=== PATIENT | female | born 1935 | race Caucasian/White ===

== ENCOUNTER 2017-08-14 12:18 | Observation (INO) | payer MEDICARE, OTHER ==
[~2017-08-14] VITALS: Ht 157.5 cm; Wt 65.8 kg
--- NOTE | ~2017-08-14 | EC ---
PATIENT:CHRIS FLORES DATE OF SERVICE: 08/14/17 SEX: F MEDICAL RECORD: [id number] DATE OF : 31 LOCATION:[facility] DinaT0 AGE OF PATIENT: 82 ADMISSION DATE: 08/14/17 REFERRING PHYSICIAN: INTERPRETING PHYSICIAN: OLMAN HUIZAR MD ECHOCARDIOGRAM REPORT ECHO CHARGES 4 ECHO COMPLETE CLINICAL DIAGNOSIS: TIA ECHOCARDIOGRAPHIC MEASUREMENTS (adult normal given) AC root (d.<3.7cm) 3.2 cm LV Septum d (<1.2 cm> 1.1 cm Valve Excursion 2.1 cm LV Septum (systole) 1.9 cm Left Atria (s.<4.0cm> 2.5 cm LVPW d(<1.2cm) 1.2 cm RV (d.<2.3cm) 1.8 cm LVPW (sytole) 1.6 cm LV diastole(<5.6CM) 4.0 cm MV E-F(>70mm/sec) cm LV systole 2.7 cm LVOT Diameter 1.9 cm MV exc.(>10mm) cm Est.ejection fraction (50-75%) % Pericardial Effusion N DOPPLER: LVIT cm/sec A 112 cm/sec E 66.0 cm/sec LA cm/sec RVSP mmHg LVOT 86.0 cm/sec AOP1/2T m/s Asc. Ao 113 cm/sec RVOT 72.0 cm/sec RA cm/sec PA 76.0 cm/sec AV Gradient Peak 5.1 mmHg AV Mean 2.2 mmHg AV Area 2.7 cm MV Gradient Peak 4.9 mmHg MV Mean 1.7 mmHg MV Area cm COMMENTS: Freight Broker Agent: Carolina RIOSOE Client Support Representative: 1 Dr. Huizar TAPE# PACS DATE OF SERVICE: 08/15/2017 DATE OF SERVICE: 08/15/2017 ECHOCARDIOGRAM FINDINGS: 1. Left ventricular chamber size is within normal limits. Left ventricular systolic function is normal. Overall ejection fraction is estimated at 55% to 60%. ECHOCARDIOGRAM REPORT [id number] CHRIS FLORES 2. Left atrium, right atrium, and right ventricular chamber sizes are within normal limits. 3. Valvular structures have normal structure and motion. 4. Doppler interrogation reveals no significant valvular insufficiency or stenosis. 5. No evidence of pericardial effusion or left ventricular thrombus. 6. No cardiac source of neurologic emboli. TRANSINT:[id number] Voice Confirmation ID: [id number] DOCUMENT ID: [id number] OLMAN HUIZAR MD at 1148 CC: [id number] DICTATION DATE: 08/15/17 164 STRUCTURAL STEEL DETAILER: 08/15/17 1844 DIS IN 08/15/17 [facility] [address] [id number]
[2017-08-14 13:17] LABS: BASOPHILS 0.4 % (0-2); EOSINOPHILS 2.6 % (0-7); HEMATOCRIT 40.6 % (36.0-48.0); IMMATURE GRANULOCYTES 0.2 % (0-5); LYMPHOCYTES 23.1 % (15-50); MCH 31.3 pg (26.0-34.0); MCHC 34.5 g/dL (31.0-37.0); MCV 90.8 fL (80.0-100.0); MEAN PLATELET VOLUME 8.5 fL (7.4-10.4); MONOCYTES 6.2 % (2-11); NEUTROPHILS 67.5 % (40-80); PLATELET COUNT 193 10x3/uL (130-400); RBC 4.47 10x6/uL (4.00-5.40); WBC 8.1 10x3/uL (4.8-10.8)
[2017-08-14 13:32] LABS: ALBUMIN 3.8 g/dL (3.4-5.0); ALKALINE PHOSPHATASE 104 U/L (46-116); ALT (SGPT) 18 U/L (10-68); BILIRUBIN - TOTAL 0.67 mg/dL (0.2-1.3); CALC OSMOLALITY 275 mosm/kg (275-300); CALCIUM 8.6 mg/dL (8.5-10.1); CARBON DIOXIDE 27.1 mmol/L (21.0-32.0); CHLORIDE - SERUM 99 mmol/L (98-107); CREATININE - SERUM 1.3 mg/dL (0.6-1.3); GLUCOSE 101 mg/dL (74-106); POTASSIUM - SERUM 3.3 mmol/L (3.5-5.1); PROTEIN - SERUM 7.7 g/dL (6.4-8.2); SODIUM 137 mmol/L (136-145); UREA NITROGEN 18 mg/dL (7-18); eGFR NON AFRICAN AMERICAN 41 mL/min (90-120)
[2017-08-14 13:39] LABS: CREATINE KINASE 104 UL (21-215); LIPASE 315 U/L (73-393); PRO BNP 242 pg/mL (0-450)
[2017-08-14 13:40] LABS: TROPONIN-I < 0.017 ng/mL (0.000-0.060)
[2017-08-14 15:28] LABS: APPEARANCE CLEAR (CLEAR); BILIRUBIN NEGATIVE (NEGATIVE); COLOR YELLOW (YELLOW); GLUCOSE NEGATIVE (NEGATIVE); KETONE NEGATIVE (NEGATIVE); NITRITE NEGATIVE (NEGATIVE); PROTEIN NEGATIVE (NEGATIVE); UROBILINOGEN NORMAL (NORMAL)
[2017-08-14 17:45] LABS: CKMB 1.6 U/L (0.0-3.6); CREATINE KINASE 116 UL (21-215)
[2017-08-14 17:51] LABS: TROPONIN-I < 0.017 ng/mL (0.000-0.060)
[2017-08-14 23:14] LABS: CKMB 1.9 U/L (0.0-3.6); CREATINE KINASE 135 UL (21-215)
[2017-08-14 23:16] LABS: TROPONIN-I < 0.017 ng/mL (0.000-0.060)
[2017-08-15 05:04] LABS: BASOPHILS 0.8 % (0-2); HEMATOCRIT 36.9 % (36.0-48.0); HEMOGLOBIN 12.4 g/dL (12-16); IMMATURE GRANULOCYTES 0.2 % (0-5); LYMPHOCYTES 20.2 % (15-50); MCH 30.6 pg (26.0-34.0); MCHC 33.6 g/dL (31.0-37.0); MCV 91.1 fL (80.0-100.0); MEAN PLATELET VOLUME 8.1 fL (7.4-10.4); NEUTROPHILS 66.8 % (40-80); PLATELET COUNT 181 10x3/uL (130-400); RBC 4.05 10x6/uL (4.00-5.40); WBC 9.3 10x3/uL (4.8-10.8)
[2017-08-15 06:02] LABS: ALBUMIN 3.3 g/dL (3.4-5.0); ALKALINE PHOSPHATASE 97 U/L (46-116); ALT (SGPT) 15 U/L (10-68); BILIRUBIN - TOTAL 0.67 mg/dL (0.2-1.3); CALCIUM 8.1 mg/dL (8.5-10.1); CARBON DIOXIDE 27.4 mmol/L (21.0-32.0); CHLORIDE - SERUM 101 mmol/L (98-107); CKMB 1.2 U/L (0.0-3.6); CREATINE KINASE 106 UL (21-215); CREATININE - SERUM 1.2 mg/dL (0.6-1.3); GLUCOSE 89 mg/dL (74-106); POTASSIUM - SERUM 3.6 mmol/L (3.5-5.1); PROTEIN - SERUM 6.6 g/dL (6.4-8.2); SODIUM 139 mmol/L (136-145); eGFR NON AFRICAN AMERICAN 45 mL/min (90-120)
[2017-08-15 06:04] LABS: CALC OSMOLALITY 276 mosm/kg (275-300); TROPONIN-I < 0.017 ng/mL (0.000-0.060); UREA NITROGEN 13 mg/dL (7-18)
[2017-08-15] MEDS ORDERED: ASPIRIN325 MG PO (16:32)
== END 2017-08-15 18:54 | disposition home or self-care (01) ==
LOC: D.ER 12:18 → D.EDHOLD 13:54 → OBSVTIME 13:54 → D.ER 14:43 → D.EDHOLD 14:43
PROVIDERS: Emergency Medicine; Family Medicine
DX: I65.1 Occlusion and stenosis of basilar artery (principal); M81.0 Age-related osteoporosis without current pathological fracture; F32.9 Major depressive disorder, single episode, unspecified; M21.372 Foot drop, left foot

== ENCOUNTER → 2017-08-28 17:21 | Outpatient (CLI) | payer MEDICARE, OTHER ==
[~2017-08-28 17:21] MED LIST: ASPIRIN325 MG PO
[2017-08-28 18:24] LABS: ANION GAP 15.6 mmol/L (8-16); CALCIUM 9.4 mg/dL (8.5-10.1); CARBON DIOXIDE 26.9 mmol/L (21.0-32.0); CREATININE - SERUM 1.4 mg/dL (0.6-1.3); POTASSIUM - SERUM 3.5 mmol/L (3.5-5.1)
== END | disposition home or self-care (01) ==
LOC: D.LABREF 17:21
PROVIDERS: Emergency Medicine
DX: I50.9 Heart failure, unspecified (principal); I10 Essential (primary) hypertension; G45.9 Transient cerebral ischemic attack, unspecified

== ENCOUNTER 2018-01-01 16:13 | Inpatient (IN) | payer MEDICARE, OTHER ==
[~2018-01-01] VITALS: Ht 160 cm; Wt 72.6 kg
[2018-01-01 18:09] VITALS: BP 142/64
[2018-01-01 19:27] LABS: APPEARANCE CLEAR (CLEAR); BILIRUBIN NEGATIVE (NEGATIVE); COLOR YELLOW (YELLOW); GLUCOSE NEGATIVE (NEGATIVE); KETONE NEGATIVE (NEGATIVE); NITRITE NEGATIVE (NEGATIVE); PROTEIN NEGATIVE (NEGATIVE); UROBILINOGEN NORMAL (NORMAL)
[2018-01-01 19:41] LABS: BASOPHILS 0.7 % (0-2); EOSINOPHILS 5.1 % (0-7); HEMATOCRIT 35.8 % (36.0-48.0); HEMOGLOBIN 12.2 g/dL (12-16); IMMATURE GRANULOCYTES 0.1 % (0-5); LYMPHOCYTES 21.7 % (15-50); MCH 31.1 pg (26.0-34.0); MCHC 34.1 g/dL (31.0-37.0); MCV 91.3 fL (80.0-100.0); MONOCYTES 9.4 % (2-11); PLATELET COUNT 176 10x3/uL (130-400); RBC 3.92 10x6/uL (4.00-5.40); RDW 13.5 % (11.5-14.5); WBC 6.9 10x3/uL (4.8-10.8)
[2018-01-01 20:00] VITALS: BP 140/82
[2018-01-01 20:23] LABS: ALBUMIN 3.4 g/dL (3.4-5.0); ANION GAP 8.6 mmol/L (8-16); BILIRUBIN - TOTAL 0.54 mg/dL (0.2-1.3); C-REACTIVE PROTEIN 2.2 mg/dL (0.0-0.9); CALCIUM 8.5 mg/dL (8.5-10.1); CARBON DIOXIDE 31.2 mmol/L (21.0-32.0); CREATININE - SERUM 1.4 mg/dL (0.6-1.3); POTASSIUM - SERUM 3.8 mmol/L (3.5-5.1); PROTEIN - SERUM 7.6 g/dL (6.4-8.2)
[2018-01-01 20:54] LABS: ERYTHROCYTE SEDIMENTATION RATE 5 mm/hr (0-30)
[2018-01-01 22:00] VITALS: BP 139/66
[2018-01-02] VITALS (7 sets, daily range): BP systolic 113–157; BP diastolic 61–68; Ht 160 cm; Wt 72.6 kg
[2018-01-02] MEDS ORDERED: TRAZODONE HCL150 MG PO (05:54)
[2018-01-02] MEDS ORDERED: K-TAB10 MEQ PO (05:55)
[2018-01-02] MEDS ORDERED: CYCLOBENZAPRINE10 MG PO (05:57)
[2018-01-02] MEDS ORDERED: ASPIRIN81 MG PO (05:58)
[2018-01-02] MEDS ORDERED: OMEPRAZOLE20 M1 PO (05:59)
[2018-01-02] MEDS ORDERED: FUROSEMIDE40 MG PO (06:00)
[2018-01-02] MEDS ORDERED: NAPROSYN500 MG PO (06:00)
[2018-01-02] MEDS ORDERED: CELEXA40 MG PO (06:01)
[2018-01-02] MEDS ORDERED: NORVASC5 MG PO (06:02)
[2018-01-02] MEDS ORDERED: ZOVIRAX400 MG PO (06:02)
[2018-01-03 01:25] VITALS: BP 129/53
[2018-01-03 05:58] VITALS: BP 140/56
[2018-01-03 09:31] VITALS: BP 151/64
[2018-01-03 13:41] VITALS: BP 140/63
[2018-01-03 17:08] VITALS: BP 140/61
[2018-01-03 21:09] VITALS: BP 126/59
[2018-01-04 00:37] VITALS: BP 136/67
[2018-01-04 06:18] VITALS: BP 135/84
[2018-01-04 08:30] VITALS: BP 155/79
[2018-01-04] MEDS ORDERED: OXYCODONE HCL10 MG PO (09:43)
[2018-01-04] MEDS ORDERED: XANAX1 MG PO (09:44)
[2018-01-04 12:01] VITALS: BP 127/56
[2018-01-04] MEDS ORDERED: STERAPRED DS 1010 MG PO (14:03)
[2018-01-04 16:14] VITALS: BP 125/56
== END 2018-01-04 18:04 | DRG 561 ==
LOC: D.ER 16:13 → D.EDHOLD 19:26 → D.M2 19:26 → D.SDCHOLD 01-03 12:45 → D.M2 01-03 12:45
PROVIDERS: Family Medicine
DX: T84.84XA Pain due to internal orthopedic prosthetic devices, implants and grafts, initial encounter (principal); T84.033A Mechanical loosening of internal left knee prosthetic joint, initial encounter; R26.2 Difficulty in walking, not elsewhere classified; Z86.73 Personal history of transient ischemic attack (TIA), and cerebral infarction without residual deficits; I11.0 Hypertensive heart disease with heart failure; I50.9 Heart failure, unspecified; F41.9 Anxiety disorder, unspecified; Z96.653 Presence of artificial knee joint, bilateral; Y83.8 Other surgical procedures as the cause of abnormal reaction of the patient, or of later complication, without mention of misadventure at the time of the procedure

== ENCOUNTER 2018-01-04 16:54 | Inpatient (IN) | payer MEDICARE, OTHER ==
[~2018-01-04] VITALS: Ht 160 cm; Wt 72.6 kg
--- NOTE | ~2018-01-04 | RHP ---
PATIENT: CHRIS RICCI MEDICAL RECORD: [id number] ACCOUNT: [id number] LOCATION:[facility]1118 : 31 ADMISSION DATE: 01/04/18 REHABILITATION HISTORY AND PHYSICAL EXAMINATION POST ADMISSION PHYSICIAN EXAMINATION ADMITTING DIAGNOSIS: Irretractable pain in left knee. HISTORY OF PRESENT ILLNESS: The patient is an 82-year-old female patient admitted to inpatient rehab with pain syndrome secondary to acute onset of irretractable left knee pain and inability to bear weight. She has got a past medical history of bilateral knee surgeries. Two days ago, she developed acute onset of sudden pain in her left knee and inability to bear weight. She usually uses a walker at home. She denies a fall or injury. She has decreased range of motion, 2 to 3+ edema in her left lower extremity. She has a past medical history of CVA, hypertension, congestive heart failure, chronic lower extremity edema, anxiety, chronic back pain. She was admitted with ortho consult. She had positive 3-phase bone scan in the region of the medial aspect of the tibial component of her left knee. This could represent a focus of loosening of the hardware and occult fracture cannot be excluded. She declined a knee tap or further intervention at this time. She started on p.o. prednisone. PT and OT were consulted. I believe she was living with her son with moderate independent with rolling walker. Currently, she is mod to max assist for ADLs and mobility secondary to increased pain in her left lower extremity. Her range of motion in the left knee has decreased. She has an antalgic gait and fair balance. She wants to be able to return home, hopefully at her prior level of functioning or better if possible. COMORBIDITIES: In this patient include acute left knee pain. Hemarthrosis of left knee, infection of left knee, bilateral lower extremity edema and inability to bear weight, history of left foot drop, bilateral total knee arthroplasties, hypoxia, basilar artery stenosis, previous CVA, hypertension, CHF and anxiety. PAST MEDICAL HISTORY: Significant for stroke, got a history of hypertension, CHF, edema, constipation, hernia and anxiety. PAST SURGICAL HISTORY: Includes knee surgery, hernia surgery, cataract surgery, appendectomy, and hysterectomy. ALLERGIES: CODEINE. CURRENT MEDICATIONS: Include MiraLax 17 grams in 8 ounce of water daily, potassium chloride 10 mEq daily. She is on Protonix 40 mg daily, Lasix 40 mg daily, citalopram 40 mg daily, aspirin chewable 81 mg daily, she actually takes 3 of these. Norvasc 5 mg daily, Zovirax 400 mg daily, OxyIR 10 mg every 4 hours p.r.n. She is on a tapering dose of prednisone, trazodone 450 mg, she take three of them 150s at bedtime, naproxen 500 mg b.i.d., Flexeril 10 mg q.i.d. p.r.n. and Xanax 1 mg b.i.d. HABITS: No current alcohol or tobacco use. FAMILY HISTORY: Noncontributory. SOCIAL HISTORY: The patient hopes to be able to return home and get back to her prior level of functioning. HISTORY AND PHYSICAL [id number] KEIRY,CHRIS REVIEW OF SYSTEMS: GENERAL: Denies weakness or fatigue. HEENT: Denies cold, cough, or congestion. CARDIOVASCULAR: Denies chest pain. PHYSICAL EXAMINATION: VITAL SIGNS: Stable, afebrile. GENERAL: Elderly female, in no acute distress upon exam. HEENT: Normocephalic and atraumatic. Mucosa moist. NECK: Supple. No lymphadenopathy. LUNGS: Clear at this time. HEART: Regular rate and rhythm. ABDOMEN: Benign. EXTREMITIES: Does have noted swelling to her knee and lower extremity region. NEUROLOGIC: She does have weakness. LABORATORY DATA: Her white count is 8.6, H&H of 11.7 and 35.0, her platelet count is 184. Sodium 138, potassium 3.6, BUN and creatinine of 20 and 1.1, blood sugar is noted to be 151. ASSESSMENT: This is an 82-year-old female patient admitted to rehab with a working diagnosis of irretractable pain to knee with debility associated with this. The patient has potential to make improvement. We instituted the following multidisciplinary therapies include, but not limited to physical, occupational, respiratory, speech, nutritional services, prosthetics and orthotics. Given her complex condition and risk for more complications, rehabilitation services cannot be provided at a low level of care such as a jail facility. PLAN: 1. Admit to [facility] for intensive inpatient therapy to include the following disciplines; A. Physical therapy to improve gait, all transfer skills and bed mobility to a modified independent level. B. Occupational therapy to improve activities of daily living to a modified independent level. C. Case management to assist with discharge planning and placement options. D. Nutrition to assist with nutritional needs. E. Rehabilitation nursing to assist in monitoring the patient's underlying medical conditions and to assist with any type of bowel or bladder management. 2. The patient's current medication and medical care will be continued. 3. The patient will be placed on standard fall precautions. 4. I am going to check a tricyclic antidepressant level on her. 5. I will also check vitamin D levels. 6. Follow up on Sunday morning or earlier if necessary. TRANSINT:[id number] Voice Confirmation ID: [id number] DOCUMENT ID: [id number] MOHIT notes whether there has been none or any medical/functional change since admission: - No change since preadmission screen. HISTORY AND PHYSICAL [id number] CHRIS RICCI attests patient continues to be appropriate for IRF: - Continues to be appropriate. REBECCA WILDER MD at 1516 CC: [id number] DICTATION DATE: 01/05/18 1026 ADMITTING SUPERVISOR: 01/05/18 1201 ADM IN [id number] [place] [address]
[~2018-01-04 16:54] MED LIST changes: +ASPIRIN81 MG PO; +CELEXA40 MG PO; +CYCLOBENZAPRINE10 MG PO; +FUROSEMIDE40 MG PO; +K-TAB10 MEQ PO; +NAPROSYN500 MG PO; +NORVASC5 MG PO; +OMEPRAZOLE20 M1 PO; +OXYCODONE HCL10 MG PO; +STERAPRED DS 1010 MG PO; +TRAZODONE HCL150 MG PO; +XANAX1 MG PO; +ZOVIRAX400 MG PO
[2018-01-04 18:15] VITALS: BP 150/68; BMI 28.4
[2018-01-04 19:00] VITALS: BP 154/65
[2018-01-05 05:05] LABS: BASOPHILS 0 % (0-2); EOSINOPHILS 0 % (0-7); HEMOGLOBIN 11.7 g/dL (12-16); IMMATURE GRANULOCYTES 0.4 % (0-5); LYMPHOCYTES 9.7 % (15-50); MCH 30.9 pg (26.0-34.0); MCHC 33.4 g/dL (31.0-37.0); MCV 92.3 fL (80.0-100.0); MEAN PLATELET VOLUME 8.2 fL (7.4-10.4); MONOCYTES 2.9 % (2-11); PLATELET COUNT 184 10x3/uL (130-400); RBC 3.79 10x6/uL (4.00-5.40); RDW 13.1 % (11.5-14.5); WBC 8.6 10x3/uL (4.8-10.8)
[2018-01-05 05:22] LABS: ANION GAP 5.7 mmol/L (8-16); CALCIUM 8.3 mg/dL (8.5-10.1); CARBON DIOXIDE 34.9 mmol/L (21.0-32.0); CREATININE - SERUM 1.1 mg/dL (0.6-1.3); POTASSIUM - SERUM 3.6 mmol/L (3.5-5.1)
[2018-01-05 08:29] VITALS: Ht 160 cm; Wt 72.6 kg
[2018-01-05 09:24] VITALS: BP 149/69
[2018-01-05 20:30] VITALS: BP 148/62
[2018-01-06 08:45] VITALS: BP 178/65
[2018-01-06 19:47] VITALS: BP 141/69
[2018-01-07 06:33] LABS: BASOPHILS 0 % (0-2); EOSINOPHILS 0 % (0-7); HEMATOCRIT 36.4 % (36.0-48.0); HEMOGLOBIN 11.8 g/dL (12-16); IMMATURE GRANULOCYTES 0.5 % (0-5); MCH 30.4 pg (26.0-34.0); MCHC 32.4 g/dL (31.0-37.0); MCV 93.8 fL (80.0-100.0); MEAN PLATELET VOLUME 8.6 fL (7.4-10.4); MONOCYTES 5.2 % (2-11); NEUTROPHILS 83.3 % (40-80); RBC 3.88 10x6/uL (4.00-5.40); RDW 13.7 % (11.5-14.5); WBC 8.5 10x3/uL (4.8-10.8)
[2018-01-07 06:41] LABS: PLATELET COUNT 234 10x3/uL (130-400)
[2018-01-07 07:06] LABS: ANION GAP 8.6 mmol/L (8-16); CALCIUM 7.9 mg/dL (8.5-10.1); CARBON DIOXIDE 37.8 mmol/L (21.0-32.0); CREATININE - SERUM 1.1 mg/dL (0.6-1.3); POTASSIUM - SERUM 3.4 mmol/L (3.5-5.1)
[2018-01-07 08:00] VITALS: BP 167/74
[2018-01-07 19:00] VITALS: BP 135/64
[2018-01-08 08:00] VITALS: BP 147/73
[2018-01-08 20:00] VITALS: BP 120/58
[2018-01-09 06:33] LABS: BASOPHILS 0 % (0-2); EOSINOPHILS 0 % (0-7); HEMOGLOBIN 12.7 g/dL (12-16); IMMATURE GRANULOCYTES 0.3 % (0-5); LYMPHOCYTES 11.4 % (15-50); MCH 30.9 pg (26.0-34.0); MCHC 33.4 g/dL (31.0-37.0); MCV 92.5 fL (80.0-100.0); MEAN PLATELET VOLUME 8.6 fL (7.4-10.4); MONOCYTES 5.4 % (2-11); NEUTROPHILS 82.9 % (40-80); PLATELET COUNT 207 10x3/uL (130-400); RBC 4.11 10x6/uL (4.00-5.40); RDW 13.9 % (11.5-14.5); WBC 9.1 10x3/uL (4.8-10.8)
[2018-01-09 06:57] LABS: ANION GAP 3.4 mmol/L (8-16); CALCIUM 7.9 mg/dL (8.5-10.1); CARBON DIOXIDE 39.3 mmol/L (21.0-32.0); POTASSIUM - SERUM 3.7 mmol/L (3.5-5.1)
[2018-01-09 19:00] VITALS: BP 122/46
[2018-01-10 08:00] VITALS: BP 131/69
[2018-01-10 19:00] VITALS: BP 133/52
[2018-01-11 08:00] VITALS: BP 145/64
[2018-01-11 20:48] VITALS: BP 135/61
[2018-01-12 08:02] VITALS: BP 183/69
[2018-01-12 12:07] LABS: BASOPHILS 0.1 % (0-2); EOSINOPHILS 2.8 % (0-7); HEMATOCRIT 38.6 % (36.0-48.0); IMMATURE GRANULOCYTES 0.5 % (0-5); LYMPHOCYTES 23.3 % (15-50); MCH 31.3 pg (26.0-34.0); MCHC 33.7 g/dL (31.0-37.0); MCV 92.8 fL (80.0-100.0); MEAN PLATELET VOLUME 8.4 fL (7.4-10.4); NEUTROPHILS 63.3 % (40-80); PLATELET COUNT 195 10x3/uL (130-400); RBC 4.16 10x6/uL (4.00-5.40); WBC 8.2 10x3/uL (4.8-10.8)
[2018-01-12 14:12] LABS: ERYTHROCYTE SEDIMENTATION RATE 11 mm/hr (0-42)
[2018-01-12 19:38] VITALS: BP 152/81
[2018-01-13 12:01] VITALS: BP 145/39
[2018-01-13 19:26] VITALS: BP 161/82
[2018-01-14 04:52] LABS: BASOPHILS 0.3 % (0-2); EOSINOPHILS 6.8 % (0-7); HEMATOCRIT 34.4 % (36.0-48.0); HEMOGLOBIN 11.4 g/dL (12-16); IMMATURE GRANULOCYTES 0.4 % (0-5); LYMPHOCYTES 36.3 % (15-50); MCH 30.8 pg (26.0-34.0); MCHC 33.1 g/dL (31.0-37.0); MEAN PLATELET VOLUME 8.7 fL (7.4-10.4); NEUTROPHILS 42.2 % (40-80); PLATELET COUNT 200 10x3/uL (130-400); RDW 14.2 % (11.5-14.5); WBC 6.8 10x3/uL (4.8-10.8)
[2018-01-14 05:34] LABS: ANION GAP 2.9 mmol/L (8-16); CALCIUM 8.3 mg/dL (8.5-10.1); CREATININE - SERUM 1.2 mg/dL (0.6-1.3); POTASSIUM - SERUM 3.9 mmol/L (3.5-5.1)
[2018-01-14 07:00] VITALS: BP 182/52
[2018-01-14 20:00] VITALS: BP 126/50
[2018-01-15 08:00] VITALS: BP 148/63
[2018-01-15 20:15] VITALS: BP 153/70
[2018-01-16 08:00] VITALS: BP 136/59
[2018-01-16 08:39] LABS: BASOPHILS 0.7 % (0-2); EOSINOPHILS 4.6 % (0-7); HEMATOCRIT 34.6 % (36.0-48.0); HEMOGLOBIN 11.4 g/dL (12-16); IMMATURE GRANULOCYTES 0.4 % (0-5); LYMPHOCYTES 24.7 % (15-50); MCH 30.8 pg (26.0-34.0); MCHC 32.9 g/dL (31.0-37.0); MCV 93.5 fL (80.0-100.0); MEAN PLATELET VOLUME 8.7 fL (7.4-10.4); MONOCYTES 10.8 % (2-11); NEUTROPHILS 58.8 % (40-80); RDW 14.3 % (11.5-14.5); WBC 6.8 10x3/uL (4.8-10.8)
[2018-01-16 08:49] LABS: PLATELET COUNT 244 10x3/uL (130-400)
[2018-01-16 08:51] LABS: ANION GAP 8.3 mmol/L (8-16); CALCIUM 8.3 mg/dL (8.5-10.1); CARBON DIOXIDE 31.9 mmol/L (21.0-32.0); CREATININE - SERUM 1.2 mg/dL (0.6-1.3); POTASSIUM - SERUM 4.2 mmol/L (3.5-5.1)
[2018-01-16 19:00] VITALS: BP 151/60
[2018-01-17 08:00] VITALS: BP 152/83
[2018-01-17 19:00] VITALS: BP 127/45
[2018-01-18 08:00] VITALS: BP 174/72
[2018-01-18] MEDS ORDERED: OXYCODONE HCL5 MG PO (08:39)
[2018-01-18 19:00] VITALS: BP 121/46
== END 2018-01-19 13:45 | disposition home health service (06) | DRG 556 ==
LOC: D.REHAB 16:54
PROVIDERS: Emergency Medicine; Orthopaedic Surgery
DX: M25.562 Pain in left knee (principal); M25.062 Hemarthrosis, left knee; M00.9 Pyogenic arthritis, unspecified; Z66 Do not resuscitate; R60.0 Localized edema; I11.0 Hypertensive heart disease with heart failure; I50.9 Heart failure, unspecified; R09.02 Hypoxemia; I65.1 Occlusion and stenosis of basilar artery; F41.9 Anxiety disorder, unspecified; G89.29 Other chronic pain

== ENCOUNTER 2018-01-30 15:56 | Inpatient (IN) | payer MEDICARE, OTHER ==
[~2018-01-30] VITALS: Ht 160 cm; Wt 538.7 kg
[2018-01-30] VITALS (9 sets, daily range): BP systolic 112–149; BP diastolic 44–65; BMI 32.8
[~2018-01-30 15:56] MED LIST changes: +OXYCODONE HCL5 MG PO
[2018-01-30] MEDS ORDERED: ADVIL200 MG PO (17:10)
[2018-01-30] MEDS ORDERED: COLACE100 MG PO (17:11)
[2018-01-30 17:29] LABS: BASOPHILS 0.2 % (0-2); EOSINOPHILS 2.6 % (0-7); HEMATOCRIT 24.6 % (36.0-48.0); HEMOGLOBIN 8.3 g/dL (12-16); IMMATURE GRANULOCYTES 1.5 % (0-5); LYMPHOCYTES 17.4 % (15-50); MCHC 33.7 g/dL (31.0-37.0); MCV 91.8 fL (80.0-100.0); MEAN PLATELET VOLUME 8.1 fL (7.4-10.4); MONOCYTES 8.8 % (2-11); NEUTROPHILS 69.5 % (40-80); RBC 2.68 10x6/uL (4.00-5.40); RDW 15.3 % (11.5-14.5)
[2018-01-30 17:35] LABS: PLATELET COUNT 335 10x3/uL (130-400)
[2018-01-30 17:56] LABS: ANION GAP 14.3 mmol/L (8-16); CALCIUM 8.2 mg/dL (8.5-10.1); CARBON DIOXIDE 26.7 mmol/L (21.0-32.0); CREATININE - SERUM 1.5 mg/dL (0.6-1.3)
[2018-01-30 18:29] LABS: % SATURATION 15 % (15-55); IRON 30 ug/dl (35-150); TOTAL IRON BIND CAPACITY 192 ug/dl (260-445); UNSAT IRON BIND CAPACITY 162 ug/dl (150-375)
[2018-01-30 19:09] LABS: HEMATOCRIT 22.7 % (36.0-48.0)
[2018-01-30 19:10] LABS: HEMOGLOBIN 7.5 g/dL (12-16)
[2018-01-31] VITALS (25 sets, daily range): BP systolic 103–146; BP diastolic 41–97; Ht 160 cm; Wt 538.7 kg
[2018-01-31 05:43] LABS: BASOPHILS 0.2 % (0-2); EOSINOPHILS 4.6 % (0-7); IMMATURE GRANULOCYTES 1.6 % (0-5); LYMPHOCYTES 18.2 % (15-50); MCH 29.4 pg (26.0-34.0); MCHC 32.4 g/dL (31.0-37.0); MCV 90.9 fL (80.0-100.0); MEAN PLATELET VOLUME 7.6 fL (7.4-10.4); MONOCYTES 8.4 % (2-11); RBC 3.09 10x6/uL (4.00-5.40); WBC 9.6 10x3/uL (4.8-10.8)
[2018-01-31 05:49] LABS: HEMATOCRIT 28.1 % (36.0-48.0); HEMOGLOBIN 9.1 g/dL (12-16); PLATELET COUNT 209 10x3/uL (130-400)
[2018-01-31 06:07] LABS: ANION GAP 10.2 mmol/L (8-16); CALCIUM 7.6 mg/dL (8.5-10.1); CARBON DIOXIDE 28.6 mmol/L (21.0-32.0); CREATININE - SERUM 1.3 mg/dL (0.6-1.3); POTASSIUM - SERUM 3.8 mmol/L (3.5-5.1)
[2018-01-31 13:08] LABS: HEMOGLOBIN 9.8 g/dL (12-16)
[2018-01-31 18:28] LABS: HEMATOCRIT 31.7 % (36.0-48.0); HEMOGLOBIN 10.6 g/dL (12-16)
[2018-01-31 18:45] LABS: HELICOBACTER PYLORI IGG NEGATIVE (NEGATIVE)
[2018-02-01] VITALS (14 sets, daily range): BP systolic 107–155; BP diastolic 47–89
[2018-02-01 01:54] LABS: BASOPHILS 0.4 % (0-2); EOSINOPHILS 4.1 % (0-7); HEMATOCRIT 32.5 % (36.0-48.0); HEMOGLOBIN 10.7 g/dL (12-16); IMMATURE GRANULOCYTES 1.5 % (0-5); LYMPHOCYTES 26.8 % (15-50); MCH 30.4 pg (26.0-34.0); MCHC 32.9 g/dL (31.0-37.0); MCV 92.3 fL (80.0-100.0); MEAN PLATELET VOLUME 7.6 fL (7.4-10.4); MONOCYTES 8.7 % (2-11); NEUTROPHILS 58.5 % (40-80); RBC 3.52 10x6/uL (4.00-5.40); RDW 15.8 % (11.5-14.5); WBC 8.5 10x3/uL (4.8-10.8)
[2018-02-01 01:59] LABS: PLATELET COUNT 269 10x3/uL (130-400)
[2018-02-01 02:04] LABS: ANION GAP 10.5 mmol/L (8-16); CALCIUM 7.7 mg/dL (8.5-10.1); CARBON DIOXIDE 28.4 mmol/L (21.0-32.0); CREATININE - SERUM 1.3 mg/dL (0.6-1.3); POTASSIUM - SERUM 3.9 mmol/L (3.5-5.1)
[2018-02-01 11:50] LABS: HEMATOCRIT 32.4 % (36.0-48.0); HEMOGLOBIN 10.8 g/dL (12-16)
[2018-02-01 17:58] LABS: HEMOGLOBIN 10.6 g/dL (12-16)
[2018-02-02 02:35] VITALS: BP 143/58
[2018-02-02 06:04] LABS: BASOPHILS 0.3 % (0-2); HEMATOCRIT 30.6 % (36.0-48.0); IMMATURE GRANULOCYTES 1.9 % (0-5); LYMPHOCYTES 22.5 % (15-50); MCH 30.1 pg (26.0-34.0); MCHC 32.7 g/dL (31.0-37.0); MCV 92.2 fL (80.0-100.0); MEAN PLATELET VOLUME 7.8 fL (7.4-10.4); MONOCYTES 9.9 % (2-11); NEUTROPHILS 60.4 % (40-80); PLATELET COUNT 246 10x3/uL (130-400); RBC 3.32 10x6/uL (4.00-5.40); RDW 16.1 % (11.5-14.5); WBC 7.3 10x3/uL (4.8-10.8)
[2018-02-02 06:37] VITALS: BP 142/55
[2018-02-02 06:50] LABS: ANION GAP 9.6 mmol/L (8-16); CALCIUM 7.7 mg/dL (8.5-10.1); CARBON DIOXIDE 27.2 mmol/L (21.0-32.0); CREATININE - SERUM 1.1 mg/dL (0.6-1.3); POTASSIUM - SERUM 3.8 mmol/L (3.5-5.1)
[2018-02-02 08:14] VITALS: BP 162/73
[2018-02-02 12:24] VITALS: BP 149/69
[2018-02-02 16:04] VITALS: BP 151/62
[2018-02-02 22:50] VITALS: BP 116/60
[2018-02-03 05:34] LABS: BASOPHILS 0.3 % (0-2); EOSINOPHILS 4.5 % (0-7); HEMATOCRIT 30.8 % (36.0-48.0); IMMATURE GRANULOCYTES 1.3 % (0-5); LYMPHOCYTES 21.8 % (15-50); MCHC 32.5 g/dL (31.0-37.0); MCV 92.5 fL (80.0-100.0); MEAN PLATELET VOLUME 7.7 fL (7.4-10.4); MONOCYTES 9.2 % (2-11); NEUTROPHILS 62.9 % (40-80); PLATELET COUNT 251 10x3/uL (130-400); RBC 3.33 10x6/uL (4.00-5.40); RDW 15.8 % (11.5-14.5); WBC 6.7 10x3/uL (4.8-10.8)
[2018-02-03 06:23] LABS: ANION GAP 9.2 mmol/L (8-16); CALCIUM 7.9 mg/dL (8.5-10.1); CARBON DIOXIDE 27.6 mmol/L (21.0-32.0); POTASSIUM - SERUM 3.8 mmol/L (3.5-5.1)
[2018-02-03 08:00] VITALS: BP 157/69
[2018-02-03 08:06] VITALS: BP 163/87
[2018-02-03 11:58] VITALS: BP 170/82
[2018-02-03 17:03] VITALS: BP 164/60
[2018-02-04 00:11] VITALS: BP 141/53
[2018-02-04 04:00] VITALS: BP 140/70
[2018-02-04 05:59] LABS: BASOPHILS 0.5 % (0-2); EOSINOPHILS 3.5 % (0-7); HEMATOCRIT 31.3 % (36.0-48.0); HEMOGLOBIN 10.1 g/dL (12-16); IMMATURE GRANULOCYTES 1.2 % (0-5); LYMPHOCYTES 19.3 % (15-50); MCH 30.1 pg (26.0-34.0); MCHC 32.3 g/dL (31.0-37.0); MCV 93.2 fL (80.0-100.0); MEAN PLATELET VOLUME 7.6 fL (7.4-10.4); MONOCYTES 7.3 % (2-11); NEUTROPHILS 68.2 % (40-80); PLATELET COUNT 212 10x3/uL (130-400); RBC 3.36 10x6/uL (4.00-5.40); WBC 5.9 10x3/uL (4.8-10.8)
[2018-02-04 06:21] LABS: ANION GAP 10.3 mmol/L (8-16); CARBON DIOXIDE 28.3 mmol/L (21.0-32.0); CREATININE - SERUM 0.9 mg/dL (0.6-1.3); POTASSIUM - SERUM 3.6 mmol/L (3.5-5.1)
[2018-02-04 07:00] VITALS: BP 173/77
[2018-02-04 17:00] VITALS: BP 159/59
[2018-02-04 23:37] VITALS: BP 154/67
[2018-02-05 05:00] VITALS: BP 148/60
[2018-02-05 06:21] LABS: BASOPHILS 0.5 % (0-2); EOSINOPHILS 3.5 % (0-7); HEMATOCRIT 30.5 % (36.0-48.0); LYMPHOCYTES 22.4 % (15-50); MCH 30.4 pg (26.0-34.0); MCHC 32.8 g/dL (31.0-37.0); MCV 92.7 fL (80.0-100.0); MEAN PLATELET VOLUME 7.8 fL (7.4-10.4); MONOCYTES 8.3 % (2-11); NEUTROPHILS 64.3 % (40-80); PLATELET COUNT 201 10x3/uL (130-400); RBC 3.29 10x6/uL (4.00-5.40); RDW 15.9 % (11.5-14.5); WBC 6.1 10x3/uL (4.8-10.8)
[2018-02-05 06:36] LABS: CALCIUM 8.1 mg/dL (8.5-10.1); CARBON DIOXIDE 28.5 mmol/L (21.0-32.0); CREATININE - SERUM 0.8 mg/dL (0.6-1.3); POTASSIUM - SERUM 3.5 mmol/L (3.5-5.1)
[2018-02-05 08:02] VITALS: BP 124/67
[2018-02-05 11:38] VITALS: BP 145/65
[2018-02-05] MEDS ORDERED: PROTONIX40 MG PO (14:05)
[2018-02-05] MEDS ORDERED: CARAFATE1 G/10 ML PO (14:05)
[2018-02-05 15:40] VITALS: BP 140/55
[2018-02-05] MEDS ORDERED: HYDROCODON-ACE1 EAC7 PO (17:27)
== END 2018-02-05 17:54 | disposition home or self-care (01) | DRG 393 ==
LOC: D.ICU 15:56 → D.M2 15:56
PROVIDERS: Family Medicine Adult Medicine; Internal Medicine Gastroenterology; Internal Medicine Nephrology
PROC: 0DJ08ZZ Inspection of Upper Intestinal Tract, Via Natural or Artificial Opening Endoscopic (ICD-10-PCS; principal; 2018-01-31 16:00)
PROC: 0DBG8ZX Excision of Left Large Intestine, Via Natural or Artificial Opening Endoscopic, Diagnostic (ICD-10-PCS; 2018-02-03)
DX: K63.3 Ulcer of intestine (principal); K25.4 Chronic or unspecified gastric ulcer with hemorrhage; D62 Acute posthemorrhagic anemia; Z86.73 Personal history of transient ischemic attack (TIA), and cerebral infarction without residual deficits; R60.0 Localized edema; K21.0 Gastro-esophageal reflux disease with esophagitis; I50.9 Heart failure, unspecified; I11.0 Hypertensive heart disease with heart failure

== ENCOUNTER 2019-01-19 09:00 | Inpatient (IN) | payer MEDICARE, OTHER ==
[~2019-01-19] VITALS: Ht 160 cm
[~2019-01-19 09:00] MED LIST changes: +ADVIL200 MG PO; +CARAFATE1 G/10 ML PO; +COLACE100 MG PO; +HYDROCODON-ACE1 EAC7 PO; +PROTONIX40 MG PO
[2019-01-19 10:00] VITALS: BP 148/76
[2019-01-19 10:40] LABS: INR 1.08 (0.85-1.17); PROTIME 13.5 SECONDS (11.6-15.0)
[2019-01-19 10:42] LABS: BASOPHILS 0.7 % (0-2); HEMATOCRIT 34.7 % (36.0-48.0); HEMOGLOBIN 11.8 g/dL (12-16); IMMATURE GRANULOCYTES 0.2 % (0-5); LYMPHOCYTES 19.4 % (15-50); MCH 31.6 pg (26.0-34.0); MCV 92.8 fL (80.0-100.0); MEAN PLATELET VOLUME 8.7 fL (7.4-10.4); MONOCYTES 8.1 % (2-11); NEUTROPHILS 69.6 % (40-80); PLATELET COUNT 189 10x3/uL (130-400); RBC 3.74 10x6/uL (4.00-5.40); RDW 13.4 % (11.5-14.5); WBC 8.2 10x3/uL (4.8-10.8)
[2019-01-19 10:47] LABS: ALBUMIN 3.2 g/dL (3.4-5.0); BILIRUBIN - TOTAL 0.53 mg/dL (0.2-1.3); CALCIUM 8.1 mg/dL (8.5-10.1); CARBON DIOXIDE 28.3 mmol/L (21.0-32.0); CREATININE - SERUM 1.3 mg/dL (0.6-1.3); POTASSIUM - SERUM 4.3 mmol/L (3.5-5.1); PROTEIN - SERUM 6.6 g/dL (6.4-8.2)
[2019-01-19 11:00] VITALS: BP 152/79
[2019-01-19 12:00] VITALS: BP 148/72
[2019-01-19 13:00] VITALS: BP 156/69
[2019-01-19 14:35] VITALS: BP 141/71
[2019-01-19 15:22] LABS: APPEARANCE CLEAR (CLEAR); BILIRUBIN NEGATIVE (NEGATIVE); COLOR YELLOW (YELLOW); GLUCOSE NEGATIVE (NEGATIVE); KETONE NEGATIVE (NEGATIVE); NITRITE NEGATIVE (NEGATIVE); PROTEIN TRACE mg/dL (NEGATIVE); UROBILINOGEN NORMAL (NORMAL)
[2019-01-19 15:26] LABS: BACTERIA FEW /hpf (NONE SEEN); RED CELLS - URINE 0-5 /hpf (0-5)
--- NOTE | 2019-01-19 19:00 | NUR ---
REPORT RECEIVED AND CARE OF PT ASSUMED. PT LYING IN LOW HUSSEIN'S POSITION WATCHING TV. IV TO RIGHT HAND PATENT WTH NS INFUSING AT KVO. LACERATION ON HEAD WELL APPROXIMATED WITH SUTURES. FACIAL BRUISING, SWOLLEN LIPS, RIGHT FOREARM HEMATOMA, RIGHT KNEE BRUISEDM, AND LEFT HAND BRUISED. PT ALERT AND ORIENTED X4. SCD'S IN USE. WILL MONITOR FOR NEEDS.
[2019-01-19 20:33] VITALS: BP 130/58
--- NOTE | 2019-01-19 21:06 | NUR ---
HS MEDICATIONS GIVEN. WILL CONTINUE TO MONITOR FOR NEEDS.
--- NOTE | 2019-01-19 21:08 | NUR ---
GAVE MORPHINE AND ZOFRAN IVP AND TYLENOL PO PER REQUEST FOR SEVERE PAIN AND NAUSEA. WILL CONTINUE TO MONITOR FOR NEEDS.
--- NOTE | 2019-01-19 23:00 | NUR ---
ASSISTED PT TO USE BEDPAN X2 THIS SHIFT...PAIN WHEN MOVING. WILL CONTINUE TO MONITOR FOR NEEDS.
[2019-01-20 00:57] VITALS: BP 123/53
--- NOTE | 2019-01-20 02:15 | NUR ---
GAVE MORPHINE AND ZOFRAN IVP AND TYLENOL PO FOR C/O SEVERE PAIN AND NAUSEA. WILL MONITOR FOR EFFECTIVENESS.
[2019-01-20 05:08] VITALS: BP 130/50
[2019-01-20 06:23] LABS: BASOPHILS 0.3 % (0-2); EOSINOPHILS 0.3 % (0-7); HEMATOCRIT 30.3 % (36.0-48.0); HEMOGLOBIN 10.3 g/dL (12-16); IMMATURE GRANULOCYTES 0.2 % (0-5); LYMPHOCYTES 15.6 % (15-50); MCH 31.9 pg (26.0-34.0); MCV 93.8 fL (80.0-100.0); MEAN PLATELET VOLUME 8.7 fL (7.4-10.4); MONOCYTES 10.1 % (2-11); NEUTROPHILS 73.5 % (40-80); PLATELET COUNT 192 10x3/uL (130-400); RBC 3.23 10x6/uL (4.00-5.40); RDW 13.6 % (11.5-14.5); WBC 9.5 10x3/uL (4.8-10.8)
[2019-01-20 06:44] LABS: CARBON DIOXIDE 28.7 mmol/L (21.0-32.0); CREATININE - SERUM 1.2 mg/dL (0.6-1.3); POTASSIUM - SERUM 3.7 mmol/L (3.5-5.1)
--- NOTE | 2019-01-20 07:32 | NUR ---
ALERT AND ORIENTED. LUNGS CLEAR BILATERALLY IN ALL THOMAS. HEART SOUNDS S1 AND S2 HEARD IN ALL THOMAS. BOWEL SOUNDS ACTIVE X 4. FACIAL BRUISING. BRUSING AND SWELLING TO EYES AND LIPS. LACERATION TO TOP OF HEAD WITH [address] BRUING TO BLE AND BUE. BRACE IN ROOM FOR LLE WEAKNESS. STATES WANTS TO TALK TO RESISTANCE MACHINE WELDER SETTER THIS AM FOR STRONGER PAIN MEDICAITON. DENIES NEEDS AT THIS TIME. BED LOW. FALL PRECAUTIONS IN PLACE. CALL GUPTA AND PERSONAL ITEMS IN REACH. WILL CONTINUE TO MONITOR.
[2019-01-20 09:11] VITALS: BP 124/55
--- NOTE | 2019-01-20 10:52 | NUR ---
RESTING IN BED. DENIES NEEDS. WILL CONTINUE TO MONITOR.
[2019-01-20 11:52] VITALS: BP 141/56
--- NOTE | 2019-01-20 14:28 | MORECARE ---
CASE MANAGEMENT DISCHARGE SUMMARY PATIENT: CHRIS RICCI UNIT: [id number] ADM DATE: 01/20/19 AGE: 84 : 33 SEX: F ROOM/BED: D.2227 AUTHOR: MAC,DOC PHYSICIAN: REFERRING PHYSICIAN: FRANCIA CANCHOLA MD DATE OF SERVICE: 01/20/19 Discharge Plan Patient Name: CHRIS RICCI Facility: [facility]:[place] : 1935 Planned Disposition: Anticipated Discharge Date: Discharge Date: Expected LOS: Initial Reviewer: [email or web address] Initial Review Date: 01/20/2019 Generated: 01/20/19 3:28 pm Comments DCP- Discharge Planning Updated by [email or web address]: Aysha Mera on 01/20/19 1:[address] Patient Name: CHRIS RICCI Admission Status: ER Accout number: [id number] Admission Date: 01-20-2019 : 1935 Admission Diagnosis: Attending: FRANCIA CANCHOLA Current LOS: 1 Anticipated DC Date: Planned Disposition: Primary Insurance: MEDICARE A & B Discharge Planning Comments: CM MET WITH PT AFTER VERBAL CONSENT TO DO INITIAL CM ASSESSMENT. CM EXPLAINED THE ROLE OF A CM AND SERVICES AVAILABLE LIKE HOME HEALTH, REHAB AND DME. PT STATED SHE WILL RETURN HOME WITH SON BUT WOULD LIKE TO DO INPATIENT REHAB BEFORE GOING BACK HOME. PT FEELS THIS IS A SAFE DC PLAN AND DENIES AND CM NEEDS AT THIS TIME. SHE IS INDEPENDENT IN HER CARE AND SON HELPS HER IF NEEDED. THEY HAVE A HOUSE KEEPER TO ATTEND TO THE HOME. . CM WILL CONTINUE TO FOLLOW. Casino Enforcement Agent: Aysha Mera DCPIA - Discharge Planning Initial Assessment Updated by [id number]: Aysha Mera on 01/20/19 2:26 pm * Is the patient Alert and Oriented? Yes * PCP kiara * [facility] * Preadmission Environment Home with Family * ADLs Independent * Other Equipment pt has walker with seat and potty chair * List name and contact numbers for known caregivers / representatives who currently or will assist patient after discharge: pilo Scales [phone] * Verbal permission to speak to the caregivers and representatives has been obtained from the patient. Yes * Additional services required to return to the preadmission environment? No * Can the patient safely return to the preadmission environment? Yes * Has this patient been hospitalized within the prior 30 days at any hospital? No Patient Name: CHRIS RICCI Page 10302 at 1428 All edits/amendments must be made on the electronic document DICTATION DATE: 01/20/191427 EPIC MANAGER: MULUGETA 01/20/191427 RPT#: [id number] DC DATE: STATUS: ADM IN [facility] [address] [place] [address] END OF REPORT
--- NOTE | 2019-01-20 14:36 | NUR ---
RESTING IN BED. DENIES PAIN. DENIES NEEDS. WILL CONTINUE TO MONITOR.
[2019-01-20 14:39] VITALS: Ht 160 cm
--- NOTE | 2019-01-20 17:26 | NUR ---
RESTING IN BED. DENIES NEEDS. BED LOW. CALL GUPTA AND PERSONAL ITEMS IN REACH. WILL CONTINUE TO MONITOR.
[2019-01-20 17:33] VITALS: BP 162/67
--- NOTE | 2019-01-20 20:24 | NUR ---
REC'D AT [facility]. OF SHIFT STATES ARE YOU GONNA HELP ME OR NOT STATES BEEN ON THIS PATEL FOR 20MIN.INFORMED JUST GETTING HERE BUT MORE THAN HAPPY TO TAKE YOU OFF PATEL PERICARE GIVEN FACIAL BRUISING AND SWELLING TO FACE,ARMS. NEURO CHECKS WNL BUT CONTINUES TO C/O SLIGHT HEADACHE STILL.WILL CONTINUE TO MONITOR FOR ANY CHGES AND FOLLOW CURRENT PLAN OF CARE.
[2019-01-20 21:44] VITALS: BP 144/64
[2019-01-21 01:11] VITALS: BP 140/72
[2019-01-21 05:08] LABS: BASOPHILS 0.4 % (0-2); EOSINOPHILS 1.3 % (0-7); HEMATOCRIT 29.4 % (36.0-48.0); IMMATURE GRANULOCYTES 0.2 % (0-5); LYMPHOCYTES 18.2 % (15-50); MCH 31.8 pg (26.0-34.0); MCV 93.6 fL (80.0-100.0); MEAN PLATELET VOLUME 8.4 fL (7.4-10.4); MONOCYTES 11.6 % (2-11); NEUTROPHILS 68.3 % (40-80); PLATELET COUNT 191 10x3/uL (130-400); RBC 3.14 10x6/uL (4.00-5.40); RDW 13.7 % (11.5-14.5); WBC 9.4 10x3/uL (4.8-10.8)
[2019-01-21 05:15] LABS: ANION GAP 9.9 mmol/L (8-16); BILIRUBIN - TOTAL 0.6 mg/dL (0.2-1.3); CALCIUM 7.9 mg/dL (8.5-10.1); CARBON DIOXIDE 30.6 mmol/L (21.0-32.0); CREATININE - SERUM 1.1 mg/dL (0.6-1.3); POTASSIUM - SERUM 3.5 mmol/L (3.5-5.1); PROTEIN - SERUM 6.4 g/dL (6.4-8.2)
[2019-01-21 06:23] VITALS: BP 152/68
--- NOTE | 2019-01-21 07:14 | NUR ---
ALERT AND ORIENTED. LUNGS CLEAR BILATERALLY IN ALL THOMAS. HEART SOUNDS S1 AND S2 HEARD IN ALL THOMAS. BOWEL SOUNDS ACTIVE X 4. BRUSING AND FACIAL EDEMA NOTED FROM FALL. LACERATION TO SCAP WITH 11 SUTURES. BRUISING TO BUE AND BLE. IV TO RIGHT HAND PATENT WITHOUT REDNESS. DENIES PAIN. DENIES NEEDS. BED LOW. FALL PRECAUTIONS IN PLACE. CALL GUPTA AND PERSONAL ITEMS IN REACH. WILL CONTINUE TO MONITOR.
[2019-01-21 08:56] VITALS: BP 139/64
--- NOTE | 2019-01-21 09:35 | NUR ---
ASSISTED OFF BEDPAN. CHANGED PAD ON BED. DENIES FURTHER NEEDS. DENIES PAIN. WILL CONTINUE TO MONITOR.
[2019-01-21 12:03] VITALS: BP 135/53
--- NOTE | 2019-01-21 12:35 | NUR ---
Rehab Note- Acute Inpatient Rehab prescreen order received. The patient is a good inpatient rehab cadidate. Visited with the patient & she is willing to admit to [facility] Acute Inpatient Rehab when medically stable & ready for discharge from the acute hospital as she has been in our acute rehab unit in the past. Will follow at this time. Thank you for this referral! Erin Mercado RN Clinical Liaison, [facility] Rehab
[2019-01-21] MEDS ORDERED: ROBAXIN500 MG PO (14:13)
[2019-01-21] MEDS ORDERED: XANAX0.25 MG PO (14:16)
--- NOTE | 2019-01-21 14:20 | NUR ---
RESTING IN BED. DENIES NEEDS. WILL CONTINUE TO MONITOR.
--- NOTE | 2019-01-21 14:59 | NUR ---
OT NOTE: PT COMPLETED BED MOB TASKS WITH CGA/MIN A. PT COMPLETED EOB SITTING BALANCE WITH SBA. PT COMPLETED COMPLETED SIMPLE FACE WASH WITH SET UP. PT COMPLETED UE AROM AXS. PT IS SOB WITH ACTIVITES. THANK YOU, PAIGE MILLS
--- NOTE | 2019-01-21 15:02 | MORECARE ---
CASE MANAGEMENT DISCHARGE SUMMARY PATIENT: CHRIS RICCI UNIT: [id number] ADM DATE: 01/20/19 AGE: 84 : 33 SEX: F ROOM/BED: D.2227 AUTHOR: MAC,DOC PHYSICIAN: REFERRING PHYSICIAN: FRANCIA CANCHOLA MD DATE OF SERVICE: 01/21/19 Discharge Plan Patient Name: CHRIS RICCI Facility: [facility]:[place] : 1935 Planned Disposition: Anticipated Discharge Date: Discharge Date: Expected LOS: Initial Reviewer: [email or web address] Initial Review Date: 01/20/2019 Generated: 01/21/19 4:02 pm Comments DCP- Discharge Planning Updated by [email or web address]: Terri Miller on 01/21/19 1:[address] She has been accepted to inpatient rehab at [facility], I informed Srikanth Stark and discharge orders received. I called Erinmain Mercado and informed her of discharge orders. Patient agrees with discharge plan. Patient states her son will be visiting in an hour and she will let him know that she is going to inpatient rehab today. DCP- Discharge Planning Updated by [email or web address]: Aysha Mera on 01/20/19 1:[address] Patient Name: CHRIS RICCI Admission Status: ER Accout number: [id number] Admission Date: 01-20-2019 : 1935 Admission Diagnosis: Attending: FRANCIA CANCHOLA Current LOS: 1 Anticipated DC Date: Planned Disposition: Primary Insurance: MEDICARE A & B Discharge Planning Comments: CM MET WITH PT AFTER VERBAL CONSENT TO DO INITIAL CM ASSESSMENT. CM EXPLAINED THE ROLE OF A CM AND SERVICES AVAILABLE LIKE HOME HEALTH, REHAB AND DME. PT STATED SHE WILL RETURN HOME WITH SON BUT WOULD LIKE TO DO INPATIENT REHAB BEFORE GOING BACK HOME. PT FEELS THIS IS A SAFE DC PLAN AND DENIES AND CM NEEDS AT THIS TIME. SHE IS INDEPENDENT IN HER CARE AND SON HELPS HER IF NEEDED. THEY HAVE A HOUSE KEEPER TO ATTEND TO THE HOME. . CM WILL CONTINUE TO FOLLOW. Language Asst: Aysha Mera DCPIA - Discharge Planning Initial Assessment Updated by [id number]: Aysha Mera on 01/20/19 2:26 pm * Is the patient Alert and Oriented? Yes * PCP kiara * [facility] * Preadmission Environment Home with Family * ADLs Independent * Other Equipment pt has walker with seat and potty chair * List name and contact numbers for known caregivers / representatives who currently or will assist patient after discharge: pilo Scales [phone] * Verbal permission to speak to the caregivers and representatives has been obtained from the patient. Yes * Additional services required to return to the preadmission environment? No * Can the patient safely return to the preadmission environment? Yes * Has this patient been hospitalized within the prior 30 days at any hospital? No Last DP export: 01/20/19 1:28 p Patient Name: CHIRS RICCI Page [phone] at 1502 All edits/amendments must be made on the electronic document DICTATION DATE: 01/21/19 1502 CUSTOMER DEVELOPMENT MANAGER: MULUGETA 01/21/19 1502 RPT#: [id number] DC DATE: STATUS: ADM IN [facility] [address] [place] [address] END OF REPORT
--- NOTE | 2019-01-21 15:54 | NUR ---
DISCHARGE EDUCATION PROVIDED BOTH WRITTEN AND VERBAL. VERBALIZED UNDERSTANDING. DENIES FURTHER QUESTIONS. REPORT CALLED TO INPATIENT REHAB. RN REQUESTED LEAVE PATIENT IV. IV SL TO PATIENT RIGHT HAND. DISCHARGED TO REHAB WITH ALL BELONGINGS.
--- NOTE | 2019-01-21 16:53 | NUR ---
TO REHAB VIA BED.
--- NOTE | 2019-01-28 06:47 | MORECARE ---
CASE MANAGEMENT DISCHARGE SUMMARY PATIENT: CHRIS RICCI UNIT: [id number] ADM DATE: 01/20/19 AGE: 84 : 31 SEX: F ROOM/BED: D.2227 AUTHOR: MAC,DOC PHYSICIAN: REFERRING PHYSICIAN: FRANCIA CANCHOLA MD DATE OF SERVICE: 01/28/19 Discharge Plan Patient Name: CHRIS RICCI Facility: [facility]:[place] : 1935 Planned Disposition: Anticipated Discharge Date: Discharge Date: 01/21/2019 Expected LOS: 0 Initial Reviewer: [email or web address] Initial Review Date: 01/20/2019 Generated: 01/28/19 7:47 am Comments DCP- Discharge Planning Updated by [email or web address]: Terri Miller on 01/21/19 1:[address] She has been accepted to inpatient rehab at [facility], I informed Srikanth Stark and discharge orders received. I called Erin Mercado and informed her of discharge orders. Patient agrees with discharge plan. Patient states her son will be visiting in an hour and she will let him know that she is going to inpatient rehab today. DCP- Discharge Planning Updated by [email or web address]: Aysha Mera on 01/20/19 1:[address] Patient Name: CHRIS RICCI Admission Status: ER Accout number: [id number] Admission Date: 01-20-2019 : 1935 Admission Diagnosis: Attending: FRANCIA CANCHOLA Current LOS: 1 Anticipated DC Date: Planned Disposition: Primary Insurance: MEDICARE A & B Discharge Planning Comments: CM MET WITH PT AFTER VERBAL CONSENT TO DO INITIAL CM ASSESSMENT. CM EXPLAINED THE ROLE OF A CM AND SERVICES AVAILABLE LIKE HOME HEALTH, REHAB AND DME. PT STATED SHE WILL RETURN HOME WITH SON BUT WOULD LIKE TO DO INPATIENT REHAB BEFORE GOING BACK HOME. PT FEELS THIS IS A SAFE DC PLAN AND DENIES AND CM NEEDS AT THIS TIME. SHE IS INDEPENDENT IN HER CARE AND SON HELPS HER IF NEEDED. THEY HAVE A HOUSE KEEPER TO ATTEND TO THE HOME. . CM WILL CONTINUE TO FOLLOW. Business Insight And Analytics Manager: Aysha Mera DCPIA - Discharge Planning Initial Assessment Updated by [email or web address]: Aysha Mera on 01/20/19 2:26 pm * Is the patient Alert and Oriented? Yes * PCP kiara * [facility] * Preadmission Environment Home with Family * ADLs Independent * Other Equipment pt has walker with seat and potty chair * List name and contact numbers for known caregivers / representatives who currently or will assist patient after discharge: pilo Scales [phone] * Verbal permission to speak to the caregivers and representatives has been obtained from the patient. Yes * Additional services required to return to the preadmission environment? No * Can the patient safely return to the preadmission environment? Yes * Has this patient been hospitalized within the prior 30 days at any hospital? No Last DP export: 01/21/19 2:02 p Patient Name: CHRIS RICCI Page [id number] at [id number] All edits/amendments must be made on the electronic document DICTATION DATE: 01/28/19646 AUTOMOBILE LOCATOR: MULUGETA 01/28/1949 RPT#: [id number] DC DATE:01/21/19 STATUS: DIS IN [facility] [address] [place] [address] END OF REPORT
== END 2019-01-21 16:53 | DRG 84 ==
LOC: OBSVTIME → D.ER 09:00 → D.MS 12:50 → OBSVTIME 12:50 → D.ER 12:50 → D.MS 01-20 11:07
PROVIDERS: Family Medicine; ADMIT Internal Medicine Nephrology; ATTEND Internal Medicine Nephrology
DX: S06.5X9A Traumatic subdural hemorrhage with loss of consciousness of unspecified duration, initial encounter (principal); W19.XXXA Unspecified fall, initial encounter; S02.2XXA Fracture of nasal bones, initial encounter for closed fracture; S01.01XA Laceration without foreign body of scalp, initial encounter; D64.9 Anemia, unspecified; I11.0 Hypertensive heart disease with heart failure; I50.9 Heart failure, unspecified; Z86.73 Personal history of transient ischemic attack (TIA), and cerebral infarction without residual deficits; H81.10 Benign paroxysmal vertigo, unspecified ear; R55 Syncope and collapse

== ENCOUNTER 2019-01-21 17:10 | Inpatient (IN) | payer MEDICARE, OTHER ==
[~2019-01-21] VITALS: Ht 160 cm; Wt 85.7 kg
[~2019-01-21 17:10] MED LIST changes: +ROBAXIN500 MG PO; +XANAX0.25 MG PO
--- NOTE | 2019-01-21 17:27 | NUR ---
ADMITTED TO REHAB FORM ACUTE UNIT. ALERT AND ORIENTED. O2 AT 2L NC. RESP EVEN AND UNLABORED. CL IN REACH.
[2019-01-21 18:38] VITALS: BP 141/52
--- NOTE | 2019-01-21 19:52 | NUR ---
NEW ADMIT, IN BED ON BEDPAN, BED IN LOWEST POSITION, TV ON, NO OTHER NEEDS NOTED, FLUIDS AND CALL LIGHT WITHIN REACH
[2019-01-21 20:47] VITALS: BP 141/52
[2019-01-21 22:58] VITALS: BP 141/52; BMI 33.5
[2019-01-22 06:27] LABS: BASOPHILS 0.4 % (0-2); EOSINOPHILS 3.2 % (0-7); HEMATOCRIT 29.1 % (36.0-48.0); HEMOGLOBIN 9.9 g/dL (12-16); IMMATURE GRANULOCYTES 0.3 % (0-5); LYMPHOCYTES 14.5 % (15-50); MCH 31.8 pg (26.0-34.0); MCV 93.6 fL (80.0-100.0); MEAN PLATELET VOLUME 8.6 fL (7.4-10.4); MONOCYTES 10.8 % (2-11); NEUTROPHILS 70.8 % (40-80); PLATELET COUNT 190 10x3/uL (130-400); RBC 3.11 10x6/uL (4.00-5.40); RDW 13.7 % (11.5-14.5); WBC 9.9 10x3/uL (4.8-10.8)
[2019-01-22 07:04] LABS: CALCIUM 8.3 mg/dL (8.5-10.1); CARBON DIOXIDE 32.4 mmol/L (21.0-32.0); POTASSIUM - SERUM 3.4 mmol/L (3.5-5.1)
--- NOTE | 2019-01-22 07:17 | NUR ---
ALERT AND ORIENTED. NO C/O PAIN. RESP EVEN AND UNLABORED. CL IN REACH.
[2019-01-22 07:49] VITALS: BP 160/68
--- NOTE | 2019-01-22 09:23 | NUR ---
SHOWER PER OT TODAY.
--- NOTE | 2019-01-22 12:48 | NUR ---
EATING LUNCH. VOIDS FREQUENTLY. BRACE TO Reagan TRUJILLO(HX CVA 1 YR AGO). CL IN REACH.
[2019-01-22 13:47] VITALS: Ht 160 cm; Wt 85.7 kg
--- NOTE | 2019-01-22 16:25 | NUR ---
NO CHANGE IN ASSESSMENT. SITTING UP IN WC. CL IN REACH. WILL HAVE PT THIS AFTERNOON.
--- NOTE | 2019-01-22 19:48 | NUR ---
AWAKE AND ALERT. RESTING IN BED WITH RESPIRATIONS SLIGHTLY LABORED WITH O2/2L ON Per NASAL CANNULA. BILATERAL WHEEZING NOTED IN LUNG THOMAS. NOTED BRUISING TO FACE AND HANDS RELATED TO FALL AT HOME. RIGHT HAND SALINE LOCK INTACT WITH NO SIGNS OF INFILTRATION. ASSISTED TO BATHROOM. WEARS BRACE ON RIGHT LOWER LEG WHILE UP. MODERATE ASSISTANCE. ASSISTED BACK TO BED.
[2019-01-22 20:13] VITALS: BP 144/65
--- NOTE | 2019-01-23 01:37 | NUR ---
RESTING IN BED WITH EYES CLOSED AND RESPIRATIONS UNLABORED. NO DISTRESS NOTED. CALL LIGHT IN REACH.
--- NOTE | 2019-01-23 05:07 | NUR ---
QUIET HOURS. NO ACUTE CHANGES IN CONDITION THIS SHIFT. RESTING IN BED WITH O2/2L ON PER NASAL CANNULA. CONTINUES TO HAVE SHORTNESS OF BREATH WITH EXERTION. 1+ EDEMA NOTED IN BLE'S. MEDICATED EARLIER FOR PAIN. WILL MONITOR FOR EFFECTIVENESS.
[2019-01-23 08:15] VITALS: BP 138/64
--- NOTE | 2019-01-23 09:48 | NUR ---
PT AM MEDS ADMINISTERED. PT PARTICIPATING IN THERAPY AT THIS TIME. WCDION.
--- NOTE | 2019-01-23 15:39 | NUR ---
PATIENT ADMITTED TO REHAB FROM ACUTE FLOOR. PATIENT LIVES WITH HER SON AND AT DISCHARGE WILL RETURN THERE. DME AT HOME IS A ROLLING WALKER AND A BEDSIDE COMMODE. DR. WILDER IS HER PCP. WILL CONTINUE TO FOLLOW WITH PATIENT AND WILL ASSIST WITH DISCHARGE NEEDS.
--- NOTE | 2019-01-23 16:21 | NUR ---
PT RESTING IN BED, DENIES NEEDS. WCTM.
[2019-01-23 19:15] VITALS: BP 141/74
--- NOTE | 2019-01-23 19:22 | NUR ---
AWAKE AND ALERT. SITTING IN WHEELCHAIR IN ROOM. O2/2L ON PER NASAL CANNULA. BILATERAL WHEEXING NOTED IN LUNG THOMAS. ASSISTED TO BED PER HER REQUEST. NOTED SHORTNESS OF BREATH WITH EXERTION. HEAD OF BED RAISED. O2 SATURATION 96%. CALL LIGHT IN REACH.
--- NOTE | 2019-01-24 05:16 | NUR ---
QUIET HOURS. RESTING IN BED WITH O2/2L ON PER NASAL CANNULA. NO DISTRESS NOTED. CALL LIGHT IN REACH.
--- NOTE | 2019-01-24 06:13 | NUR ---
ASSITED UP TO BATHROOM. C/O NECK HURTING THIS AM STATES "I DONT KNOW WHAT I DID TO IT" MEDICATED FOR PAIN. SEE MAR. MESSAGE LEFT ON ROUNDING SHEET FOR DR WILDER.
[2019-01-24 07:30] VITALS: BP 142/71
--- NOTE | 2019-01-24 08:05 | NUR ---
PT RESTING IN BED WITH EYES OPEN CALL LIGHT IN REACH WILL MONITER
--- NOTE | 2019-01-24 12:25 | NUR ---
NUTRITION F/U PT TOLERATING RENAL ADA DIET. ~50% INTAKE RECENT MEALS. WILL CONTINUE TO PROVIDE DIET, MONITOR PO INTAKE. MAY BENEFIT FROM LIBERALIZED DIET IF PO INTAKE REMAINS POOR. RD FOLLOWING
--- NOTE | 2019-01-24 17:48 | NUR ---
PT UP IN WHEELCHAIR AT BEDSIDE EATING SUPPER CALL LIGHT IN REACH WILL MONITER
--- NOTE | 2019-01-24 19:36 | NUR ---
PT RESTING IN HER ROOM WATCHING TV. ALERT AND ORIENTED X 3. VOICED COMPLAINT OF A HEADACHE. REQUESTED AND MEDICATED WITH TYLENOL. ASSISTED TO THE BATHROOM WITH SBA, AND THEN INTO BED WITH MOD ASSIST. NO FURTHER NEEDS VOICED. SR'S ARE UPX 2 IN BED. CALL LIGHT AND BEDSIDE TABLE ARE WITHIN EASY REACH.
[2019-01-24 20:42] VITALS: BP 151/81
--- NOTE | 2019-01-24 22:16 | NUR ---
I have reviewed this patient and I concur with the Shift Assessment completed by the Licensed Practical Nurse today this shift.
--- NOTE | 2019-01-25 00:15 | NUR ---
RESTING IN BED WITH EYES CLOSED.
--- NOTE | 2019-01-25 03:41 | NUR ---
PT IS RESTING IN BED WITH EYES CLOSED. ASSISTED TO THE BATHROOM PRN.
--- NOTE | 2019-01-25 06:27 | NUR ---
PT ASSISTED TO THE BATHROOM , AND THEN BACK TO THE BATHROOM. 2 LARGE BMS NOTED.
[2019-01-25 07:25] VITALS: BP 153/64
--- NOTE | 2019-01-25 07:30 | NUR ---
RESTING WO DISTRESS. RESP EVEN AND UNLABORED. CL IN REACH.
--- NOTE | 2019-01-25 09:37 | NUR ---
RESTING WO DISTRESS. RESP EVEN AND UNLABORED. CL IN REACH.
--- NOTE | 2019-01-25 16:39 | NUR ---
NO C/O PAIN. RESTING AT THIS TIME. CL IN REACH. ALERT AND ORIENTED. IMPROVING WITH ADLS. TOILETING /.
--- NOTE | 2019-01-25 18:15 | NUR ---
RESTING IN BED. NO CHANGE IN ASSESSMENT.
[2019-01-25 19:30] VITALS: BP 141/70
--- NOTE | 2019-01-25 19:47 | NUR ---
PT IS RESTING IN BED WATCHING TV. NO NEEDS VOICED.
--- NOTE | 2019-01-25 23:01 | NUR ---
RESTING IN BED WITH EYES CLOSED.
--- NOTE | 2019-01-25 23:30 | NUR ---
I have reviewed this patient and I concur with the Shift Assessment completed by the Licensed Practical Nurse today this shift.
--- NOTE | 2019-01-26 04:35 | NUR ---
RESTING IN BED WITH EYES CLOSED.
[2019-01-26 08:51] VITALS: BP 147/58
--- NOTE | 2019-01-26 11:36 | NUR ---
THE PATIENT WAS LYING IN BED AND WATCHING TELEVIAION WHEN STAFF ENTERED HER ROOM. BED IS IN THE LOW PSOITION WITH SIDERAILS X2 AND CALL LIGHT IS WITHIN REACH. THE PATIENT WAS EDUCATED ON THE USE OF A CALL IGHT AND DEMONSTRATES UNDERSTANDING VIA TEACHBACK METHOD. THE PATIENT APPEARS COMFORTABLE AND HAS NO QUESTIONS OR COCNERNS AT THIS TIME.
--- NOTE | 2019-01-26 19:49 | NUR ---
GREETED PATIENT AND INTRODUCED MYSELF. PATIENT IS LAYING IN BED IN SUPINE POSITION. O2 IN USE AT 2L VIA NC. RESPIRATIONS EVEN. NO S/S OF DISTRESS. GENERALIZED PAIN 4/10 OVER ENTIRE BODY. PATIENT WANTS TO WAIT AND TAKE PAIN MEDICATION. CALL LIGHT IN REACH.
[2019-01-26 21:43] VITALS: BP 141/60
--- NOTE | 2019-01-27 01:01 | NUR ---
PATIENT ASLEEP WITH EYES CLOSED AND GLASSES ON. RESPIRATIONS EVEN. NO S/S OF DISTRESS. O2 AT 2L IN USE VIA NC. SR UP X 2. BED IN LOWEST POSITION. CALL LIGHT IN REACH.
[2019-01-27 05:46] LABS: BASOPHILS 0.6 % (0-2); EOSINOPHILS 3.7 % (0-7); HEMATOCRIT 28.3 % (36.0-48.0); HEMOGLOBIN 9.6 g/dL (12-16); IMMATURE GRANULOCYTES 0.1 % (0-5); MCH 31.4 pg (26.0-34.0); MCHC 33.9 g/dL (31.0-37.0); MCV 92.5 fL (80.0-100.0); MEAN PLATELET VOLUME 8.1 fL (7.4-10.4); MONOCYTES 11.2 % (2-11); NEUTROPHILS 58.4 % (40-80); RBC 3.06 10x6/uL (4.00-5.40); RDW 13.4 % (11.5-14.5); WBC 6.8 10x3/uL (4.8-10.8)
[2019-01-27 05:49] LABS: PLATELET COUNT 248 10x3/uL (130-400)
[2019-01-27 05:57] LABS: ANION GAP 8.3 mmol/L (8-16); CALCIUM 8.4 mg/dL (8.5-10.1); CARBON DIOXIDE 35.9 mmol/L (21.0-32.0); CREATININE - SERUM 1.1 mg/dL (0.6-1.3); POTASSIUM - SERUM 3.2 mmol/L (3.5-5.1)
[2019-01-27 08:00] VITALS: BP 158/78
--- NOTE | 2019-01-27 08:00 | NUR ---
PATIENT IS ALERT/ORIENT. PRN ZOFRAN AND PRN TUMS GIVEN PER PATIENT REQUEST. CALL LIGHT WITHIN REACH. WILL CONTINUE WITH PLAN OF CARE
--- NOTE | 2019-01-27 09:17 | NUR ---
PRN XANAX GIVEN PER PATIENT REQUEST. PATIENT IN REHAB ROOM. WORKING WITH OCCUPATIONAL THERAPIST.
--- NOTE | 2019-01-27 13:30 | NUR ---
PATIENT HELPED TO BATHROOM BY THIS NURSE. MIN TO MOD ASST FROM BED TO WHEELCHAIR AND WHEELCHAIR TO TOILET. PATIENT CONT OF B/B
--- NOTE | 2019-01-27 13:40 | NUR ---
Nutrition Follow-up: Diet: AHA Low Cholestrol Low Fat/Ensure with meals PO: ~64% x last 5 days Likes the food. States that she has been eating poorly but that she is starting to "turn the corner" and is feeling and eating better. Reports some nausea still but non currently. Likes getting Ensure with meals. BM x 1 today Labs and meds reviewed. Last wt: 189# (01/22/19) Continue current nutrition orders. Needs new weight this week. RD following.
--- NOTE | 2019-01-27 19:33 | NUR ---
ASSISTED TO AND FROM BATHROOM. CL IN REACH. BACK IN BED. RESP EVEN AND UNLABORED. O2 ON 2L. BED IN LOW SIDE RAILS X2. A/O X4. WILL CONTINUE TO MONITOR.
[2019-01-27 20:05] VITALS: BP 144/66
--- NOTE | 2019-01-27 23:30 | NUR ---
ASSISTED TO AND FROM BATHROOM. CL IN REACH. BACK IN BED. DENIES FURTHER NEEDS. WCTM
--- NOTE | 2019-01-28 05:00 | NUR ---
ASSISTED TO AND FROM BATHROOM. DENIES FURTHER NEEDS. CL IN REACH. WCTM
--- NOTE | 2019-01-28 06:48 | NUR ---
I have reviewed this patient and I concur with the Shift Assessment completed by the Licensed Practical Nurse today this shift.
--- NOTE | 2019-01-28 08:15 | NUR ---
PT RESTING IN BED WITH EYES OPEN CALL LIGHT IN REACH NO PROBLEMS WILL MONITER
[2019-01-28 10:31] VITALS: BP 141/66
--- NOTE | 2019-01-28 13:16 | NUR ---
I have reviewed this patient and I concur with the Shift Assessment completed by the Licensed Practical Nurse today this shift.
--- NOTE | 2019-01-28 18:33 | NUR ---
PT RESTING IN BED WITH EYES OPEN CALL LIGHT IN REACH WILL MONITER
[2019-01-28 19:48] VITALS: BP 131/58
--- NOTE | 2019-01-28 20:09 | NUR ---
AWAKE AND ALERT. ASSISTED TO BATHROOM AND BACK TO BED. RESPIRATIONS SLIGHTLY LABORED WITH EXERTIOBN. BILATER WHEEZE NOTED IN LUNG THOMAS. O2/2L ON PER NASAL CANNULA. SUTURES INTACT TO FRONTAL HEAD. NOTED HEALING BRUISES TO FACE RELATED TO FALL AT HOME. NO ACUTE DISTRESS NOTED. CALL LIGHT IN REACH.
--- NOTE | 2019-01-29 02:57 | NUR ---
RESTING IN BED WITH RESPIRATIONS UNLABORED. O2/2L ON PER NASAL CANNULA. NO DISTRESS NOTED. CALL LIGHT IN REACH.
--- NOTE | 2019-01-29 05:09 | NUR ---
RESTING IN BED WITH EYES CLOSED. HAS SOME DIFFICULTY FALLING ASLEEP LAST NIGHT RELATED TO PAIN AND ANXIETY BUT EVENTUALLY DID. O2/2L ON PER NASAL CANNULA. CALL LIGHT IN REACH.
[2019-01-29 07:41] LABS: HEMATOCRIT 29.4 % (36.0-48.0); HEMOGLOBIN 10.1 g/dL (12-16); LYMPHOCYTES 25.7 % (15-50); MCH 32.7 pg (26.0-34.0); MCHC 34.4 g/dL (31.0-37.0); MCV 95.1 fL (80.0-100.0); MEAN PLATELET VOLUME 7.5 fL (7.4-10.4); NEUTROPHILS 63.9 % (40-80); RBC 3.09 10x6/uL (4.00-5.40); WBC 6.9 10x3/uL (4.8-10.8)
[2019-01-29 07:44] LABS: PLATELET COUNT 359 10x3/uL (130-400)
[2019-01-29 07:49] LABS: ANION GAP 9.9 mmol/L (8-16); CALCIUM 8.4 mg/dL (8.5-10.1); CARBON DIOXIDE 33.4 mmol/L (21.0-32.0); CREATININE - SERUM 1.1 mg/dL (0.6-1.3); POTASSIUM - SERUM 3.3 mmol/L (3.5-5.1)
[2019-01-29 08:02] VITALS: BP 126/63
--- NOTE | 2019-01-29 10:01 | NUR ---
THE PATIENT WAS LYING IN BED AND WATCHING TELEVISON WHEN STAFF ENTERED HER ROOM. BED IS IN THE LOW POSITION WITH SIDERAILS X2 AND CALL LIGHT WITHIN REACH. THE PATIENT DEMONSTRATES APPROPRIATE USE OF A CALL LIGHT AND THAT SHE NEEDS TO CALL FOR ASSISTANCE WHEN EVER SHE NEEDS TO GET OUT OF BED. THE PATIENT APPEARS COMFORTABLE WITH NO QUESTIONS OR COCNERNS AT THIS TIME.
--- NOTE | 2019-01-29 16:14 | NUR ---
CARE TEAM MEETING: PATIENT PROGRESSING WELL IN THERAPY, TENATIVE DISCHARGE DATE IS 01/31/19. PLANS ARE FOR HER TO RETURN HOME WITH HER FAMILY. WILL CONTINUE TO FOLLOW WITH PATIENT.
[2019-01-29 19:30] VITALS: BP 151/58
--- NOTE | 2019-01-29 20:00 | NUR ---
PATIENT RECEIVED SITTING UP IN BED. VITAL SIGNS & ASSESSMENT DONE. NO C/O PAIN OR DISTRESS. BED LOW. CALL LIGHT WITHIN REACH. WILL CONTINUE TO MONITOR.
--- NOTE | 2019-01-30 01:59 | NUR ---
I have reviewed this patient and I concur with the Shift Assessment completed by the Licensed Practical Nurse today this shift.
--- NOTE | 2019-01-30 03:44 | NUR ---
PATIENT EYES CLOSED. RESPIRATIONS 18 & EVEN. BED LOW. CALL LIGHT WITHIN REACH. WILL CONTINUE TO MONITOR.
[2019-01-30 07:25] VITALS: BP 159/77
--- NOTE | 2019-01-30 08:15 | NUR ---
PT RESTING IN BED WITH EYES OPEN CALL LIGHT IN REACH NO PROBLEMS WILL MONITER
--- NOTE | 2019-01-30 16:47 | NUR ---
I have reviewed this patient and I concur with the Shift Assessment completed by the Licensed Practical Nurse today this shift.
--- NOTE | 2019-01-30 18:00 | NUR ---
PT RESTING IN BED WITH EYES OPEN EATING SUPPER TOLERATING WELL WILL MONITER
--- NOTE | 2019-01-30 19:40 | NUR ---
PT LYING IN BED WATCHING TV. CL IN REACH. ADMINISTERED XANAX FOR ANXIETY PER MAR. DENIES FURTHER NEEDS AT THIS TIME. BED IN LOW SIDE RAILS X2. RESP EVEN AND UNLABORED. O2 ON 2L VIA NC. LUNGS WHEEZING WHEN EXPIRATORY. BOWEL ACTIVE X4. A/O X4. WILL CONTINUE TO MONITOR.
[2019-01-30 20:33] VITALS: BP 182/69
--- NOTE | 2019-01-30 20:45 | NUR ---
ASSISTED TO AND FROM BATHROOM. BACK IN BED. CL IN REACH
--- NOTE | 2019-01-30 21:30 | NUR ---
ASSISTED TO AND FROM BATHROOM. BACK IN BED. CL IN REACH. COMPLAINING OF HEADACHE EDUCATED PT ABOUT JUST HAVING PAIN MED AN HOUR AGO AND PT STATED "IT HAS NOT KICKED IN YET" TOLD PT THAT THE PAIN MED WILL KICK IN SOON BEFORE THE TYLENOL WILL. PT THEN STATED " I JUST WANY MY TYLENOL PLEASE". GAVE PT TYLENOL. DENIES FURTHER NEEDS. CPOC
--- NOTE | 2019-01-31 00:30 | NUR ---
I have reviewed this patient and I concur with the Shift Assessment completed by the Licensed Practical Nurse today this shift.
--- NOTE | 2019-01-31 02:00 | NUR ---
assisted to and from bathroom. denies further needs. back in bed. cl in reach.
--- NOTE | 2019-01-31 05:45 | NUR ---
ASSISTED TO AND FROM BATHROOM. CL IN REACH. BACK IN BED. DENIES FURTHER NEEDS
[2019-01-31 06:37] LABS: ANION GAP 11.5 mmol/L (8-16); CALCIUM 8.6 mg/dL (8.5-10.1); CARBON DIOXIDE 31.4 mmol/L (21.0-32.0); CREATININE - SERUM 0.9 mg/dL (0.6-1.3)
[2019-01-31 06:40] LABS: BASOPHILS 0.6 % (0-2); EOSINOPHILS 4.8 % (0-7); HEMATOCRIT 30.2 % (36.0-48.0); HEMOGLOBIN 10.1 g/dL (12-16); IMMATURE GRANULOCYTES 0.5 % (0-5); MCH 31.3 pg (26.0-34.0); MCHC 33.4 g/dL (31.0-37.0); MCV 93.5 fL (80.0-100.0); MEAN PLATELET VOLUME 8.2 fL (7.4-10.4); MONOCYTES 8.2 % (2-11); NEUTROPHILS 63.9 % (40-80); PLATELET COUNT 343 10x3/uL (130-400); POTASSIUM - SERUM 3.9 mmol/L (3.5-5.1); RBC 3.23 10x6/uL (4.00-5.40); WBC 7.9 10x3/uL (4.8-10.8)
[2019-01-31 07:51] VITALS: BP 176/73
[2019-01-31] MEDS ORDERED: TRAZODONE HCL150 MG PO (08:31)
[2019-01-31] MEDS ORDERED: K-DUR20 MEQ PO (08:31)
[2019-01-31] MEDS ORDERED: oxyCODONE IR PO (08:36)
--- NOTE | 2019-01-31 09:46 | NUR ---
SITTING UP IN BED WATCHING TV. DENIES PAIN OR INCREASED SOB. WEARING OXYGEN 2LNC. CALL LIGHT IN RECH
--- NOTE | 2019-01-31 10:01 | NUR ---
SUTURES REMOVED FROM FOREHEAD. INCISION CLOSED. NO S/S INFECTION OR DRAINAGE.
--- NOTE | 2019-01-31 10:21 | NUR ---
PATIENT DISCHARGING HOME TODAY WITH FAMILY. [facility] WILL PROVIDE THERAPY AT HOME. [facility] HAS DELIVERED PORTABLE O2 AMD HOME O2 FOR PATIENT. PATIENT WILL BE FOLLOWED BY HOUSECALLS AND DR. WILDER WILL SEE NEEDED. PATIENT CHOICE FORM AND IMFM FORMS SIGNED, COPY GIVEN TO PATIENT AND FILED IN CHART. DISCHARGE INSTRUCTIONS WITH [facility]IM DATA FAXED TO PCP, HOME HEALTH AND REVIEWED WITH PATIENT.
== END 2019-01-31 10:30 | disposition home health service (06) | DRG 950 ==
LOC: D.REHAB 17:10
PROVIDERS: ADMIT Emergency Medicine; ATTEND Emergency Medicine
DX: S06.5X0D Traumatic subdural hemorrhage without loss of consciousness, subsequent encounter (principal); W19.XXXD Unspecified fall, subsequent encounter; S02.2XXD Fracture of nasal bones, subsequent encounter for fracture with routine healing; I11.0 Hypertensive heart disease with heart failure; I50.9 Heart failure, unspecified; R60.9 Edema, unspecified; R55 Syncope and collapse; S01.81XD Laceration without foreign body of other part of head, subsequent encounter; D64.9 Anemia, unspecified; H91.90 Unspecified hearing loss, unspecified ear; F41.9 Anxiety disorder, unspecified; G89.29 Other chronic pain; M19.90 Unspecified osteoarthritis, unspecified site